=== PATIENT | female | born 1930 | race African-American/Black ===

== ENCOUNTER 2018-05-20 10:55 | Emergency (ER) | payer OTHER ==
[~2018-05-20] VITALS: Ht 162.6 cm; Wt 99.8 kg
[~2018-05-20 10:55] MED LIST: ATOR80TA; DIPH2.5T73 PO; HYDR-4072; HYDR25TA4; LOSA25TA8; METF-771; POTA10TA75; TRIA0.5C10; WARF5TAB71 PO
[2018-05-20 11:27] LABS: Basophils # (auto) 0 uL; Basophils % (auto) 0.3 % (0.0-2.0); Eosinophils # (auto) 0.1 uL; Eosinophils % (auto) 0.8 % (0.0-7.0); Hematocrit 29.6 % (36.0-46.0); Hemoglobin 9.8 g/dL (12.2-16.2); Lymphocytes # (auto) 1.3 uL; Mean Corpuscular Hemoglobin 27.6 pg (28.0-32.0); Mean Corpuscular Hgb Conc. 32.9 g/dL (32.0-36.0); Mean Corpuscular Volume 83.7 fL (80.0-100.0); Monocytes # (auto) 1.4 uL; Monocytes % (auto) 15.1 % (0.0-12.0); Neutrophils # (auto) 6.7 uL; Neutrophils % (auto) 69.8 % (37.0-80.0); Platelet Count (auto) 186 10^3/uL (140-450); Red Blood Cells 3.54 10^6/uL (4.0-5.20); Red Cell Distribution Width 18.2 % (11.8-14.3); White Blood Cell 9.6 10^3/uL (4.4-10.8)
[2018-05-20 11:42] LABS: Albumin 2.6 g/dL (3.4-5.0); Calcium 9.8 mg/dL (8.5-10.1); Potassium 3.8 mmol/L (3.5-5.1)
[2018-05-20 11:45] LABS: BUN/Creatinine Ratio 24.3; Bilirubin, Total 0.8 mg/dL (0.2-1.0); Total Protein 7.8 g/dL (6.4-8.2)
[2018-05-20] MEDS: SODIUM CHLORIDE 0.9% 1,000 ML IV ONE ×2 (12:00→12:09)
[2018-05-20 12:44] LABS: INR 2.43 (0.9-1.15); Partial Thromboplastin Time 43.4 sec (23.78-33.04); Prothrombin Time 24.7 sec (9.27-12.13)
[2018-05-20 12:49] LABS: Magnesium 1.4 mg/dL (1.6-2.6)
[2018-05-20 13:14] LABS: Urine Bacteria NONE SEEN /hpf (None Seen); Urine Blood Negative /uL (Negative); Urine Specific Gravity 1.009 (1.001-1.035); Urine WBC <1 /hpf (0 - 5)
[2018-05-20] MEDS ORDERED: DEXAMETHASONE SOD PHOS 4 MG/1ML SDV INJ IV ONE (16:00)
[2018-05-20 16:48] VITALS: BP 130/61
== END 2018-05-20 16:55 | disposition home or self-care (01) ==
LOC: EDUNIT# 10:55 → EDBD 10:55 → ER 10:57
DX: M54.12 Radiculopathy, cervical region (principal); M10.9 Gout, unspecified; M54.9 Dorsalgia, unspecified; G89.29 Other chronic pain; D64.9 Anemia, unspecified; E11.21 Type 2 diabetes mellitus with diabetic nephropathy; E46 Unspecified protein-calorie malnutrition; E83.42 Hypomagnesemia; E11.9 Type 2 diabetes mellitus without complications; E78.5 Hyperlipidemia, unspecified; I10 Essential (primary) hypertension; Z88.0 Allergy status to penicillin; Z79.84 Long term (current) use of oral hypoglycemic drugs; Z79.899 Other long term (current) drug therapy; Z90.49 Acquired absence of other specified parts of digestive tract; Z90.710 Acquired absence of both cervix and uterus; Z95.0 Presence of cardiac pacemaker; Z68.37 Body mass index [BMI] 37.0-37.9, adult
CPT/HCPCS: 36415; 71045; 72125; 80053; 81001; 83735; 84443; 84484; 85025; 85610; 85730; 93005; 93971; 96374; 99284; J1100

== ENCOUNTER 2018-06-04 15:46 | Emergency (ER) | payer OTHER ==
[~2018-06-04] VITALS: Ht 170.2 cm; Wt 108.9 kg
[2018-06-04 16:38] LABS: Basophils # (auto) 0 uL; Basophils % (auto) 0.5 % (0.0-2.0); Eosinophils # (auto) 0.1 uL; Eosinophils % (auto) 1.1 % (0.0-7.0); Hematocrit 29.1 % (36.0-46.0); Hemoglobin 9.6 g/dL (12.2-16.2); Lymphocytes # (auto) 1.7 uL; Lymphocytes % (auto) 19.5 % (10.0-50.0); Mean Corpuscular Hemoglobin 27.6 pg (28.0-32.0); Mean Corpuscular Hgb Conc. 32.8 g/dL (32.0-36.0); Mean Corpuscular Volume 84.2 fL (80.0-100.0); Monocytes # (auto) 1.1 uL; Neutrophils # (auto) 5.6 uL; Neutrophils % (auto) 65.9 % (37.0-80.0); Platelet Count (auto) 198 10^3/uL (140-450); Red Blood Cells 3.46 10^6/uL (4.0-5.20); Red Cell Distribution Width 18.6 % (11.8-14.3); White Blood Cell 8.5 10^3/uL (4.4-10.8)
[2018-06-04 17:06] LABS: Albumin 2.7 g/dL (3.4-5.0); Calcium 8.9 mg/dL (8.5-10.1); Potassium 3.4 mmol/L (3.5-5.1)
[2018-06-04 17:09] LABS: BUN/Creatinine Ratio 16.7; Bilirubin, Total 0.5 mg/dL (0.2-1.0); Total Protein 7.6 g/dL (6.4-8.2)
[2018-06-04 17:13] LABS: Prothrombin Time 53.2 sec (9.27-12.13)
[2018-06-04 17:14] LABS: Partial Thromboplastin Time 47.1 sec (23.78-33.04)
[2018-06-04 17:18] LABS: INR 5.47 (0.9-1.15)
[2018-06-04] MEDS ORDERED: PHYTONADIONE (VIT K)10 MG/ML 1ML VIAL SUBCUT ONE (21:00)
[2018-06-04] MEDS ORDERED: ONDANSETRON HCL 4 MG/2 ML VIAL IV ONE (21:00)
[2018-06-04] MEDS ORDERED: MORPHINE SULFATE 4 MG/ML SYR/VIAL IV ONE (21:00)
[2018-06-04 23:55] VITALS: BP 139/61
== END 2018-06-05 00:15 | disposition home or self-care (01) ==
LOC: ER 15:46 → EDBD 15:46 → ER 06-05 00:15
DX: M25.512 Pain in left shoulder (principal); I31.3 Pericardial effusion (noninflammatory); D53.9 Nutritional anemia, unspecified; E11.22 Type 2 diabetes mellitus with diabetic chronic kidney disease; I12.9 Hypertensive chronic kidney disease with stage 1 through stage 4 chronic kidney disease, or unspecified chronic kidney disease; N18.3 Chronic kidney disease, stage 3 (moderate); E78.5 Hyperlipidemia, unspecified; M10.9 Gout, unspecified; Z86.718 Personal history of other venous thrombosis and embolism; Z88.0 Allergy status to penicillin; Z90.49 Acquired absence of other specified parts of digestive tract; Z90.710 Acquired absence of both cervix and uterus; Z95.0 Presence of cardiac pacemaker
CPT/HCPCS: 36415; 71045; 73200; 80053; 84484; 85025; 85610; 85730; 93005; 96372; 96374; 96375; 99285; J2270; J2405; J3430

== ENCOUNTER 2019-04-30 20:38 | Emergency (ER) | payer OTHER ==
[~2019-04-30] VITALS: Ht 167.6 cm; Wt 86.2 kg
[2019-04-30 22:21] LABS: Basophils # (auto) 0 uL; Basophils % (auto) 0.3 % (0.0-2.0); Eosinophils # (auto) 0 uL; Hemoglobin 9.5 g/dL (12.2-16.2); Lymphocytes # (auto) 0.4 uL; Lymphocytes % (auto) 5.8 % (10.0-50.0); Mean Corpuscular Hemoglobin 27.2 pg (28.0-32.0); Mean Corpuscular Hgb Conc. 32.7 g/dL (32.0-36.0); Monocytes # (auto) 0.1 uL; Monocytes % (auto) 0.8 % (0.0-12.0); Neutrophils # (auto) 6.5 uL; Neutrophils % (auto) 93.1 % (37.0-80.0); Platelet Count (auto) 154 10^3/uL (140-450); Red Blood Cells 3.49 10^6/uL (4.0-5.20); Red Cell Distribution Width 19.2 % (11.8-14.3)
[2019-04-30 22:40] LABS: Albumin 3.1 g/dL (3.4-5.0); Anion Gap 9 (5-15); Calcium 9.1 mg/dL (8.5-10.1); Carbon Dioxide 22 mmol/L (21-32); Chloride 110 mmol/L (98-107); INR 3.88 (0.9-1.15); Partial Thromboplastin Time 33.1 sec (23.64-32.05); Potassium 4.6 mmol/L (3.5-5.1); Sodium 141 mmol/L (136-145)
[2019-04-30 22:44] LABS: Alanine Aminotransferase 19 U/L (13-56); Aspartate Aminotransferase 22 U/L (15-37); BUN/Creatinine Ratio 18.6; Blood Urea Nitrogen 30 mg/dL (7-18); GFR African American 39 mL/min; GFR Non-African American 32 mL/min; Glucose 255 mg/dL (74-106)
[2019-04-30 22:48] LABS: Alkaline Phosphatase 119 U/L (45-117); Bilirubin, Total 0.4 mg/dL (0.2-1.0)
[2019-04-30] MEDS ORDERED: ALBUTEROL SULF 2.5 MG/0.5ML(0.5%) NEB SOLN NEB ONE (23:30)
[2019-04-30] MEDS ORDERED: IPRATROPIUM BROM 0.5 MG/2.5ML INH SOL NEB ONE (23:30)
[2019-05-01] MEDS ORDERED: LEVOFLOXACIN 500MG 100 ML IV ONE ×2 (01:15→01:23)
[2019-05-01] MEDS ORDERED: FUROSEMIDE 40 MG/4 ML VIAL ONE (01:23)
[2019-05-01] MEDS ORDERED: FUROSEMIDE 40 MG/4 ML VIAL IV ONE (01:30)
[2019-05-01 04:25] VITALS: BP 147/60
== END 2019-05-01 04:34 | disposition short-term general hospital (02) ==
LOC: EDBD 20:38 → ER 20:42
DX: I11.0 Hypertensive heart disease with heart failure (principal); I50.9 Heart failure, unspecified; E11.9 Type 2 diabetes mellitus without complications; M10.9 Gout, unspecified; E78.00 Pure hypercholesterolemia, unspecified; Z90.49 Acquired absence of other specified parts of digestive tract; Z90.710 Acquired absence of both cervix and uterus; Z95.0 Presence of cardiac pacemaker
CPT/HCPCS: 36415; 71045; 80053; 83880; 84484; 85025; 85610; 85730; 93005; 94640; 96365; 96366; 96375; 99285; J1940; J1956; J7611; J7644

== ENCOUNTER 2019-12-29 08:35 | Inpatient (IN) | payer OTHER ==
[~2019-12-29] VITALS: Ht 170.2 cm; Wt 110.6 kg
[~2019-12-29 08:35] MED LIST changes: +TRIA0.5C; -TRIA0.5C10
[2019-12-29 12:16] LABS: Basophils # (auto) 0.1 10 ^3/uL (0-0.2); Basophils % (auto) 0.8 % (0.0-2.0); Eosinophils # (auto) 0.1 10 ^3/uL (0-0.8); Eosinophils % (auto) 1.7 % (0.0-7.0); Hematocrit 29.7 % (36.0-46.0); Hemoglobin 9.4 g/dL (12.2-16.2); Lymphocytes # (auto) 1.7 10 ^3/uL (0.4-5.4); Lymphocytes % (auto) 23.5 % (10.0-50.0); Mean Corpuscular Hemoglobin 27.7 pg (28.0-32.0); Mean Corpuscular Hgb Conc. 31.8 g/dL (32.0-36.0); Mean Corpuscular Volume 87.1 fL (80.0-100.0); Monocytes # (auto) 0.5 10 ^3/uL (0-1.3); Monocytes % (auto) 7.5 % (0.0-12.0); Neutrophils # (auto) 4.7 10 ^3/uL (1.6-8.6); Neutrophils % (auto) 66.5 % (37.0-80.0); Platelet Count (auto) 172 10^3/uL (140-450); Red Blood Cells 3.41 10^6/uL (4.0-5.20); White Blood Cell 7.1 10^3/uL (4.4-10.8)
[2019-12-29 12:32] LABS: INR 2.02 (0.9-1.15); Partial Thromboplastin Time 28.4 sec (23.64-32.05)
[2019-12-29 12:37] LABS: Albumin 3.1 g/dL (3.4-5.0); Anion Gap 7 (5-15); Blood Urea Nitrogen 25 mg/dL (7-18); Calcium 9.7 mg/dL (8.5-10.1); Carbon Dioxide 23 mmol/L (21-32); Chloride 112 mmol/L (98-107); Glucose 106 mg/dL (74-106); Potassium 4.1 mmol/L (3.5-5.1); Sodium 142 mmol/L (136-145)
[2019-12-29 12:42] LABS: Alanine Aminotransferase 20 U/L (13-56); Alkaline Phosphatase 103 U/L (45-117); Aspartate Aminotransferase 22 U/L (15-37); Bilirubin, Total 0.3 mg/dL (0.2-1.0); GFR African American 40 mL/min; GFR Non-African American 33 mL/min; Total Protein 8.5 g/dL (6.4-8.2)
[2019-12-29] MEDS: MAGNESIUM SULFATE 1GM/100ML 100 ML IV SCH ×2 (14:38→15:33)
[2019-12-29 14:46] LABS: Urine WBC None Seen /hpf (0 - 5)
[2019-12-29 14:58] LABS: Urine Bacteria NONE SEEN /hpf (None Seen); Urine Blood Negative /uL (Negative)
[2019-12-29] MEDS ORDERED: ASPirin-EC 81 mg tab PO ONE (15:45)
[2019-12-29] MEDS ORDERED: DEXTROSE (50%) 50ML SYRG IV PRN (16:45)
[2019-12-29] MEDS ORDERED: ONDANSETRON HCL 4 MG/2 ML VIAL IV PRN (16:45)
[2019-12-29] MEDS ORDERED: LACTULOSE 20Gm/30ML SOLN PO PRN (16:45)
[2019-12-29] MEDS ORDERED: NITROGLYCERIN 0.4 MG SL TAB SL PRN (16:45)
[2019-12-29] MEDS ORDERED: MORPHINE SULF INJ 2 MG/ML SYRINGE 1ML IV PRN (16:45)
[2019-12-29] MEDS: ACCU-CHEK COMFORT CURVE STRIP VI SCH ×2 (17:00→23:07)
[2019-12-29] MEDS ORDERED: FUROSEMIDE 40 MG/4 ML VIAL IV ONE (18:15)
[2019-12-29] MEDS: InsuLIN REG 1unit/0.01ml Soln (100units/ml) SC SCH ×2 (18:19→23:06)
[2019-12-29] MEDS ORDERED: WARFARIN SODIUM 5 MG TAB PO ONE ×2 (18:20→19:00)
[2019-12-29 20:21] VITALS: BP 155/80
--- NOTE | 2019-12-29 20:21 | NUR ---
Telemetry admit from ER KETAN METZGER admitted to Telemetry unit. SBAR not received, report not given. Patient oriented to TARIK ESPINAL, RN primary RN, unit, room, bed, and unit policies regarding patient care and visiting hours. Patient now on continuous telemetry monitoring, tele box #[id number] and telemetry reading on arrival to unit is SR. Patient weighed by bedscale and encouraged to call if they need something. Patient free of s/s of pain or distress. Patient safety measures in place bed in lowest position, side rails up x2, and call light within reach. All questions and concerns addressed, patient verbalized understanding.
[2019-12-29] MEDS: SODIUM CHLOR 0.9% PF (SALINE LOCK) 10ML VIAL/SYR IV SCH (22:56)
[2019-12-29] MEDS: CARVEDILOL 3.125 MG TAB PO SCH (22:57)
[2019-12-29] MEDS: traMADol HCL 50 MG TAB PO PRN (22:57)
[2019-12-29] MEDS: ISOSORBIDE DINITRATE 10 MG TAB PO SCH (22:58)
[2019-12-29] MEDS: ATORVASTATIN 20 MG TAB PO SCH (22:58)
[2019-12-30] MEDS ORDERED: LOSA-69 PO (02:04)
[2019-12-30] MEDS ORDERED: SENN-58 PO (02:04)
[2019-12-30] MEDS ORDERED: HYDR25TA4 PO (02:04)
[2019-12-30] MEDS ORDERED: DOCU250C3 PO (02:06)
[2019-12-30] MEDS ORDERED: MECL25CH38 PO (02:08)
[2019-12-30] MEDS ORDERED: VERA240C2 PO (02:08)
[2019-12-30] MEDS: SODIUM CHLOR 0.9% PF (SALINE LOCK) 10ML VIAL/SYR IV SCH ×3 (06:28→22:25)
[2019-12-30] MEDS: ISOSORBIDE DINITRATE 10 MG TAB PO SCH ×3 (06:29→22:23)
[2019-12-30] MEDS: FUROSEMIDE 40 MG/4 ML VIAL IV SCH ×2 (06:29→17:36)
[2019-12-30] MEDS: InsuLIN REG 1unit/0.01ml Soln (100units/ml) SC SCH ×4 (06:29→22:00)
[2019-12-30] MEDS: CARVEDILOL 3.125 MG TAB PO SCH ×3 (06:30→22:24)
[2019-12-30] MEDS: ACCU-CHEK COMFORT CURVE STRIP VI SCH ×4 (06:31→22:24)
[2019-12-30 07:13] LABS: Basophils # (auto) 0.1 10 ^3/uL (0-0.2); Basophils % (auto) 0.7 % (0.0-2.0); Eosinophils # (auto) 0.3 10 ^3/uL (0-0.8); Eosinophils % (auto) 3.6 % (0.0-7.0); Hematocrit 27.8 % (36.0-46.0); Hemoglobin 8.9 g/dL (12.2-16.2); Lymphocytes # (auto) 1.6 10 ^3/uL (0.4-5.4); Lymphocytes % (auto) 22.3 % (10.0-50.0); Mean Corpuscular Hemoglobin 28.3 pg (28.0-32.0); Mean Corpuscular Hgb Conc. 32.1 g/dL (32.0-36.0); Mean Corpuscular Volume 87.9 fL (80.0-100.0); Monocytes # (auto) 0.8 10 ^3/uL (0-1.3); Monocytes % (auto) 10.8 % (0.0-12.0); Neutrophils # (auto) 4.5 10 ^3/uL (1.6-8.6); Neutrophils % (auto) 62.6 % (37.0-80.0); Nucleated Red Blood Cells % 0.1 %; Platelet Count (auto) 168 10^3/uL (140-450); Red Blood Cells 3.16 10^6/uL (4.0-5.20); Red Cell Distribution Width 18.3 % (11.8-14.3); White Blood Cell 7.2 10^3/uL (4.4-10.8)
[2019-12-30 07:26] LABS: Albumin 2.7 g/dL (3.4-5.0); Anion Gap 5 (5-15); Blood Urea Nitrogen 24 mg/dL (7-18); Calcium 9.1 mg/dL (8.5-10.1); Carbon Dioxide 26 mmol/L (21-32); Chloride 109 mmol/L (98-107); Glucose 103 mg/dL (74-106); Potassium 3.7 mmol/L (3.5-5.1); Sodium 140 mmol/L (136-145)
[2019-12-30 07:28] LABS: INR 2.1 (0.9-1.15)
--- NOTE | 2019-12-30 07:30 | NUR ---
RECEIVED PATIENT AWAKE, ALERT AND ORIENTED X4. PATIENT DENIES SOB AND PAIN, NO S/S DISTRESS NOTED AT THIS TIME. PLAN OF CARE DISCUSSED. PATIENT ADVISED TO CALL FOR ASSISTANCE PRN. BED IN LOW AND LOCKED POSITION, CALL LIGHT AND PHONE WITHIN REACH. WILL CONTINUE TO MONITOR Q1HR AND PRN.
[2019-12-30 07:34] LABS: Alanine Aminotransferase 16 U/L (13-56); Alkaline Phosphatase 90 U/L (45-117); Aspartate Aminotransferase 17 U/L (15-37); BUN/Creatinine Ratio 18.8; Bilirubin, Total 0.5 mg/dL (0.2-1.0); GFR African American 50 mL/min; GFR Non-African American 42 mL/min; Total Protein 7.3 g/dL (6.4-8.2)
[2019-12-30 08:00] VITALS: BP 111/49
[2019-12-30 08:43] VITALS: BP 111/49
[2019-12-30] MEDS: ENALAPRIL MALEATE 10 MG TAB PO SCH (09:32)
[2019-12-30] MEDS: NITROGLYCERIN 0.2MG/HR TOPICAL PATCH TD SCH (09:32)
[2019-12-30] MEDS: PANTOPRAZOLE 40 MG TAB PO SCH (09:32)
[2019-12-30] MEDS: POTASSIUM CHL 20 Meq TABLET PO SCH (09:33)
[2019-12-30 12:52] VITALS: BP 128/54
[2019-12-30] MEDS ORDERED: WARFARIN SODIUM 5 MG TAB PO ONE (17:00)
[2019-12-30 17:15] VITALS: BP 118/52
--- NOTE | 2019-12-30 17:30 | NUR ---
IN-HOUSE COVID TEST COLLECTED AND SENT TO LAB PER MD'S ORDER
--- NOTE | 2019-12-30 19:30 | NUR ---
Opening Shift Note Assumed care of patient, awake and alert. No S/S of distress/SOB or pain. Safety measures in place, bed in lowest position, bed rails up x2, call light within reach. All needs met at this time. Instructed on POC and to call for assist PRN, will continue to monitor for changes Q1hr and PRN.
--- NOTE | 2019-12-30 20:00 | NUR ---
Strict I&O Per Maite Smalls NP note, pt is on strict I&O and on a fluid restriction. No maximum intake value noted in orders. Will monitor and chart I&O amounts.
[2019-12-30 22:00] VITALS: BP 149/71
[2019-12-30] MEDS: ATORVASTATIN 20 MG TAB PO SCH (22:23)
[2019-12-30] MEDS: traMADol HCL 50 MG TAB PO PRN (22:24)
--- NOTE | 2019-12-31 | NUR ---
High temp Temp measured at 102.2 degrees. Prescribed Tylenol 500 mg administered, blankets removed from pts bed. Will reassess in 1 hour.
[2019-12-31] MEDS: ACETAMINOPHEN 500 MG TAB PO PRN ×2 (00:14→11:21)
--- NOTE | 2019-12-31 01:00 | NUR ---
Temp Update Temp was brought down to 99.2. Cooling measures still in place. Will continue to monitor.
[2019-12-31 05:00] VITALS: BP 134/62
--- NOTE | 2019-12-31 05:30 | NUR ---
Temp Update Temperature measured at 100.6. Cooling measures in place. Notified pt to keep blankets off and increase fluid intake.
--- NOTE | 2019-12-31 06:00 | NUR ---
Temp Pt found with multiple blankets on. Told pt that she could not have multiple blankets on because of her increased temp. Pt began getting agitated and saying she is "freezing". Day aid notified that blankets should not be given to pt due to high temp. Cooling measures initiated, pt advised to increase fluid intake again. Will continue to monitor and inform day RN.
[2019-12-31] MEDS: traMADol HCL 50 MG TAB PO PRN ×2 (06:06→17:54)
[2019-12-31] MEDS: ISOSORBIDE DINITRATE 10 MG TAB PO SCH ×3 (06:07→22:33)
[2019-12-31] MEDS: FUROSEMIDE 40 MG/4 ML VIAL IV SCH ×2 (06:07→17:39)
[2019-12-31] MEDS: SODIUM CHLOR 0.9% PF (SALINE LOCK) 10ML VIAL/SYR IV SCH ×3 (06:08→22:33)
[2019-12-31] MEDS: ACCU-CHEK COMFORT CURVE STRIP VI SCH ×4 (06:15→22:17)
[2019-12-31] MEDS: InsuLIN REG 1unit/0.01ml Soln (100units/ml) SC SCH ×4 (06:16→22:00)
--- NOTE | 2019-12-31 06:30 | NUR ---
Pt refused to be turned and repositioned. Pt states that repositioning causes her pain. Education provided on the risks and benefits of frequent turning, pt verbalized understanding, pt still refused. Will continue to monitor
[2019-12-31 06:43] LABS: Basophils # (auto) 0 10 ^3/uL (0-0.2); Basophils % (auto) 0.5 % (0.0-2.0); Eosinophils # (auto) 0.2 10 ^3/uL (0-0.8); Eosinophils % (auto) 2.2 % (0.0-7.0); Hematocrit 31.1 % (36.0-46.0); Hemoglobin 10.2 g/dL (12.2-16.2); Lymphocytes # (auto) 1.8 10 ^3/uL (0.4-5.4); Lymphocytes % (auto) 20.3 % (10.0-50.0); Mean Corpuscular Hemoglobin 27.8 pg (28.0-32.0); Mean Corpuscular Hgb Conc. 32.7 g/dL (32.0-36.0); Mean Corpuscular Volume 85.1 fL (80.0-100.0); Monocytes # (auto) 1.4 10 ^3/uL (0-1.3); Monocytes % (auto) 15.6 % (0.0-12.0); Neutrophils # (auto) 5.4 10 ^3/uL (1.6-8.6); Neutrophils % (auto) 61.4 % (37.0-80.0); Platelet Count (auto) 182 10^3/uL (140-450); Red Blood Cells 3.66 10^6/uL (4.0-5.20); Red Cell Distribution Width 17.8 % (11.8-14.3); White Blood Cell 8.8 10^3/uL (4.4-10.8)
[2019-12-31 06:57] LABS: Albumin 3.1 g/dL (3.4-5.0); INR 2.86 (0.9-1.15)
--- NOTE | 2019-12-31 08:30 | NUR ---
CALLED [facility] FOR PACEMAKER CHECK, SPOKE WITH ESTELA.
[2019-12-31 09:00] VITALS: BP 137/68
[2019-12-31] MEDS: PANTOPRAZOLE 40 MG TAB PO SCH (09:16)
[2019-12-31] MEDS: ENALAPRIL MALEATE 10 MG TAB PO SCH (09:16)
[2019-12-31] MEDS: CARVEDILOL 3.125 MG TAB PO SCH ×2 (09:17→22:32)
[2019-12-31] MEDS: POTASSIUM CHL 20 Meq TABLET PO SCH (09:17)
[2019-12-31] MEDS: NITROGLYCERIN 0.2MG/HR TOPICAL PATCH TD SCH (09:18)
[2019-12-31] MEDS ORDERED: levoFLOXacin 500MG 100 ML IV ONE (10:30)
[2019-12-31] MEDS ORDERED: levoFLOXacin 500MG 100 ML IV SCH (10:45)
--- NOTE | 2019-12-31 11:40 | NUR ---
fever temp 102.5, Dr. Abdul made aware, received order for repeat blood culture and urinalysis.
[2019-12-31] MEDS: MAGNESIUM SULFATE 1GM/100ML 100 ML IV SCH ×2 (12:43→14:26)
[2019-12-31 13:00] VITALS: BP 151/74
[2019-12-31 13:36] LABS: Urine Bacteria FEW /hpf (None Seen); Urine Blood 1+ /uL (Negative); Urine Hyaline Cast FEW /lpf (0 - 2); Urine Specific Gravity 1.009 (1.001-1.035); Urine WBC 3 /hpf (0 - 5)
[2019-12-31 16:58] VITALS: BP 117/58
[2019-12-31] MEDS ORDERED: WARFARIN SODIUM 2 MG TAB PO ONE (17:00)
--- NOTE | 2019-12-31 19:00 | NUR ---
Opening Shift Note Assumed care of patient, awake and alert. No S/S of distress/SOB or pain. Instructed on POC and to call for assist PRN, will continue to monitor for changes Q1hr and PRN.
[2019-12-31 22:00] VITALS: BP 115/62
[2019-12-31] MEDS: ATORVASTATIN 20 MG TAB PO SCH (22:32)
[2020-01-01 05:00] VITALS: BP 103/46
[2020-01-01] MEDS: FUROSEMIDE 40 MG/4 ML VIAL IV SCH (06:00)
[2020-01-01] MEDS: ISOSORBIDE DINITRATE 10 MG TAB PO SCH ×2 (06:13→14:38)
[2020-01-01] MEDS: SODIUM CHLOR 0.9% PF (SALINE LOCK) 10ML VIAL/SYR IV SCH (06:14)
[2020-01-01 06:17] LABS: Hematocrit 28.4 % (36.0-46.0); Hemoglobin 9.5 g/dL (12.2-16.2); Mean Corpuscular Hemoglobin 28.1 pg (28.0-32.0); Mean Corpuscular Hgb Conc. 33.3 g/dL (32.0-36.0); Mean Corpuscular Volume 84.4 fL (80.0-100.0); Platelet Count (auto) 156 10^3/uL (140-450); Red Blood Cells 3.36 10^6/uL (4.0-5.20); Red Cell Distribution Width 17.2 % (11.8-14.3); White Blood Cell 10.9 10^3/uL (4.4-10.8)
[2020-01-01 06:31] LABS: Band Neutrophils % (manual) 0; Basophils % (manual) 0 (0.0-2.0); Blast Cells 0; Eosinophils % (manual) 0 (0-7); Myelocytes % 0; Promyelocytes % 0; Reactive Lymphocytes 0
[2020-01-01 06:39] LABS: INR 3.43 (0.9-1.15)
[2020-01-01] MEDS: ACCU-CHEK COMFORT CURVE STRIP VI SCH ×2 (06:44→11:30)
[2020-01-01] MEDS: InsuLIN REG 1unit/0.01ml Soln (100units/ml) SC SCH ×2 (06:44→11:30)
[2020-01-01 06:57] LABS: Albumin 2.6 g/dL (3.4-5.0)
[2020-01-01 08:01] LABS: Lymphocytes % (manual) 23 (10.0-50.0); Metamyelocytes % 1; Monocytes % (manual) 9 (0-12)
--- NOTE | 2020-01-01 08:12 | NUR ---
A&O SITTING UPRIGHT INDEPENDENT WITH TAKING IN BREAKFAST. DENIES ANY DISCOMFORT. STATES LOOKING FORWARD TO GOING HIM. STATES SHE HAS A WALKER THAT SHE USES AT HOME AND THAT SHE HAS BEEN GETTING UP TO USE THE BSC. HOWEVER SHE DOES HAVE A INDWELLING REED CATH INSERTED FOR IMMOBILITY. PLAN FOR PT TO ASSESS FOR ABILITY PRIOR TO ANY DC HOME.
[2020-01-01 08:30] VITALS: BP 103/42
--- NOTE | 2020-01-01 09:27 | NUR ---
CONFIRMED PT IS ON LIST FOR PT EVALUATION THIS AFTERNOON.
--- NOTE | 2020-01-01 09:41 | NUR ---
ATTENDED MD DR CHAPINCITO FINE. EXPLAINED TO PT IMPORTANCE OF TAKING DIURETIC AND POTASSIUM AT HOME WHEN DISCHARGED.
[2020-01-01] MEDS: ENALAPRIL MALEATE 10 MG TAB PO SCH (10:00)
[2020-01-01] MEDS ORDERED: levoFLOXacin 500MG 100 ML IV SCH ×2 (10:00)
[2020-01-01] MEDS: NITROGLYCERIN 0.2MG/HR TOPICAL PATCH TD SCH (10:00)
[2020-01-01] MEDS: CARVEDILOL 3.125 MG TAB PO SCH (10:00)
[2020-01-01 13:00] VITALS: BP 132/49
[2020-01-01] MEDS: POTASSIUM CHL 20 Meq TABLET PO SCH (14:29)
[2020-01-01] MEDS: PANTOPRAZOLE 40 MG TAB PO SCH (14:29)
[2020-01-01 15:01] VITALS: BP 133/41
--- NOTE | 2020-01-01 17:12 | NUR ---
CONTACT MADE EARLIER WITH PT'S DAUGHTER SANDRA. CONFIRMED THAT SHE DOES HAVE A WALKER THAT SHE USES AT HOME. DAUGHTER STATES THAT AFTER HER LAST SHORT HOSPITALIZATION SHE HAD TO BE WORKED WITH AT HOME TO BUILD UP HER STRENGTH SHE HAD BECOME WEAK. REED CATHETER HAS BEEN REMOVED ABOUT AN HOUR AGO. SHE HAS RECEIVED A DOSE OF IV ANTIBIOTICS PRIOR TO DC HOME. REVIEWED WITH DAUGHTER MEDICATIONS AND IMPORTANCE OF TAKING A DIURETIC AND POTASSIUM. MONITORING HER B/P AND LOGGING IT TO REPORT TO HER REGULAR MD. PT DECLINED FILLING PRESCRIPTIONS WITH A HIGHER COPAY AND OPTS TO FILL THE PRESCRIPTION WITH [facility]. CLOTHING DROPPED OFF TO WEAR HOME. PT BEING DRESSED AND PREPARED FOR DC HOME WITH FAMILY.
--- NOTE | 2020-01-01 18:15 | NUR ---
ASSISTED WITH DRESSING PT. IV REMOVED. TELE MONITOR RETURNED TO ICU. PT TAKEN TO WAITING PRIVATE VEHICLE. ASSISTED TO STAND PIVOT WITH MAX ASSIST INTO FRONT PASSENGER SEAT
== END 2020-01-01 18:15 | disposition home or self-care (01) | DRG 291 ==
LOC: ER 08:35 → EDBD 08:35 → TELE 08:36 → TELE-WESTW 20:21
PROVIDERS: ADMIT Internal Medicine; ATTEND Family Medicine
PROC: 4B02XSZ Measurement of Cardiac Pacemaker, External Approach (ICD-10-PCS; principal; 2019-12-30)
DX: I13.0 Hypertensive heart and chronic kidney disease with heart failure and stage 1 through stage 4 chronic kidney disease, or unspecified chronic kidney disease (principal); I50.43 Acute on chronic combined systolic (congestive) and diastolic (congestive) heart failure; Z68.41 Body mass index [BMI] 40.0-44.9, adult; I16.0 Hypertensive urgency; D63.8 Anemia in other chronic diseases classified elsewhere; E11.22 Type 2 diabetes mellitus with diabetic chronic kidney disease; E78.5 Hyperlipidemia, unspecified; E83.42 Hypomagnesemia; I25.10 Atherosclerotic heart disease of native coronary artery without angina pectoris; E66.01 Morbid (severe) obesity due to excess calories; I27.20 Pulmonary hypertension, unspecified; N18.3 Chronic kidney disease, stage 3 (moderate); Z79.01 Long term (current) use of anticoagulants; Z95.0 Presence of cardiac pacemaker; Z88.0 Allergy status to penicillin; Z90.710 Acquired absence of both cervix and uterus; Z20.828 Contact with and (suspected) exposure to other viral communicable diseases
CPT/HCPCS: 36415; 71045; 80053; 81001; 82040; 82550; 82565; 82962; 83036; 83605; 83735; 83880; 84443; 84484; 85007; 85025; 85027; 85610; 85730; 87040; 93005; 93306; 96365; 96366; G0378; J1815; J1956